=== PATIENT | female | born 1955 | race Caucasian/White ===

== ENCOUNTER → 2017-05-12 | Outpatient (CLI) | payer MEDICARE, MEDICAID ==
[~2017-05-12] MED LIST: ACET325T38 PO; ARIP5TAB13 PO; CARB15DR87 OT; CLOT15CR4 TP; DOCU-161 PO; Hydrocodone Bit/Acetaminophen PO; MELO-170 PO; MULT-974 PO; PHEN-633 PO; TEA60OIL TP; VIT1CAPS29 PO
--- NOTE | 2017-05-13 19:05 | Diagnostic Imaging Report ---
Bilateral screening mammogram 2D views with tomosynthesis The current study was also evaluated with a Computer Aided Detection (CAD) system. Indication: Screening. No current complaints stated on the questionnaire. COMPARISON: 04/16/2016. FINDINGS: The breasts are composed of heterogeneously dense parenchyma which may decrease mammographic sensitivity. Benign-appearing calcifications are seen. Allowing for technique and positional differences, no suspicious change is seen. IMPRESSION: No significant change. ACR BI-RADS Category 2: Benign findings. Result letter will be mailed to the patient. Note: At least 10% of breast cancer is not imaged by mammography. Dictated by: Dictated on workstation # [id number]
== END ==
LOC: RAD 09:25
PROVIDERS: ATTEND Family Medicine
DX: Z12.31 Encounter for screening mammogram for malignant neoplasm of breast (principal)

== ENCOUNTER 2019-03-21 12:46 | Emergency (ER) | payer MEDICARE, MEDICAID ==
[~2019-03-21] VITALS: Ht 170 cm; Wt 100.0 kg
--- NOTE | 2019-03-21 13:50 | NUR ---
Pt to room #9 via personal w/c by [facility] staff. Facility staff assisted pt to ED cart. Pt experienced x1 episode of of urinary and bowel incontinence. ED staff changed and repositioned pt.
--- NOTE | 2019-03-21 14:44 | ED General ---
General Chief Complaint: Ear Problems Stated Complaint: BACK/SIDE PAIN Nursing Triage Note: Patient brought to ER by caregiver from [facility] with complaint of right ear pain and right flank pain since Wednesday. Patient is non-verbal but does touch the right side of her head/ear when asked where pain is at today. Per caregiver the patient has also been touching her right flank area. They have been alternating tylenol and Ibuprofen with last dose of Ibuprofen given at 08:00 AM. Nursing Sepsis Screen: No Definite Risk Source of Information: Patient, Caregiver Exam Limitations: Language Barrier (Patient is mute) History of Present Illness Date Seen by Provider: Mar 21, 2019 Time Seen by Provider: 14:08 Initial Comments This 63-year-old female resident of [place] presents to the ER accompanied by a staff member with suspected pain in the right mouth or ear as well as right flank or abdominal pain. Staff reports that she has been grabbing at these areas and seems to be in pain. The caregiver present states she has not seen any recent bowel movements so constipation is a possibility. There were no known injuries. Vital signs are within normal limits. Patient has cerebral palsy and significant MR. She is nonverbal. Allergies and Home Medications Allergies Coded Allergies: carbamazepine (Unverified Allergy, Mild, 10/03/09) iodine (Unverified Allergy, Mild, 10/03/09) Home Medications Acetaminophen 325 Mg Tablet, 650 MG PO Q6H PRN for PAIN, (Reported) Aripiprazole 5 Mg Tablet, 5 MG PO HS, (Reported) Carbamide Peroxide 15 Ml Drops, 15 ML OT UD, (Reported) Cephalexin 500 Mg Capsule, 500 MG PO TID Prescribed by: KEESHA MAHONEY on 03/21/19 1701 Clotrimazole/Betamethasone Dip 15 Gm Cream..g., 15 GM TP TID, (Reported) Docusate Sodium 100 Mg Capsule, 100 MG PO DAILY PRN for CONSTIPATION, (Reported) Meloxicam 7.5 Mg Tablet, 7.5 MG PO DAILY, (Reported) Multivitamin 1 Each Tablet, 1 TAB PO DAILY, (Reported) Phenytoin Sodium 100 Mg Cap, 200 MG PO BID, (Reported) Polyethylene Glycol 3350 119 Gm Powder, 17 GM PO BID PRN for CONSTIPATION-1ST LINE Fill to cap line. Dissolve in 8-12 ounces of clear liquid. Prescribed by: KEESHA MAHONEY on 03/21/19 1701 Tea Tree Oil 60 Ml Oil, 1 DROP TP DAILY, (Reported) to TOENAILS Patient Home Medication List Home Medication List Reviewed: Yes Review of Systems Review of Systems Constitutional: no symptoms reported EENTM: see HPI Respiratory: no symptoms reported Cardiovascular: no symptoms reported Gastrointestinal: see HPI Genitourinary: no symptoms reported : No Musculoskeletal: no symptoms reported Skin: no symptoms reported Psychiatric/Neurological: See HPI Hematologic/Lymphatic: No Symptoms Reported Immunological/Allergic: no symptoms reported Past Hhwvqae-Okavuo-Hvklls Hx Past Med/Social Hx: Reviewed Nursing Past Med/Soc Hx Patient Social History Alcohol Use: Denies Use Recreational Drug Use: No Smoking Status: Never a Smoker 2nd Hand Smoke Exposure: No Recent Foreign Travel: No Contact w/Someone Who Travel: No Recent Infectious Disease Expo: No Recent Hopitalizations: No Immunizations Up To Date Tetanus Booster (TDap): Unknown Date of Influenza Vaccine: Mar 29, 2018 Seasonal Allergies Seasonal Allergies: No Past Medical History Surgeries: Yes (FX HIP AND ANKLE REPAIRS) Respiratory: No Cardiac: No Neurological: Yes Cerebral Palsy, Developmental Disorder (Mental retardation of [place] chart), Seizure Disorder Reproductive Disorders: No Gastrointestinal: Yes Chronic Constipation Musculoskeletal: Yes (01/11/15 LEFT TIB/FIB FX) Arthritis, Fractures Endocrine: No Hearing Impairment: Deaf Cancer: No Psychosocial: Yes Schizophrenia (schizoaffective disorder) Integumentary: No Blood Disorders: No Family Medical History Patient reports no known family medical history. Physical Exam Vital Signs Vital Signs - First Documented 03/21/19 03/21/19 13:14 17:43 Temp 35.5 Pulse 78 Resp 14 B/P (MAP) 124/81 (95) Pulse Ox 96 O2 Delivery Room Air Capillary Refill : Less Than 3 Seconds Height, Weight, BMI Height: 5'4.00" Weight: 200lbs. 9.6oz. 90.757965hp; 34.00 BMI Method:Estimated General Appearance: No Apparent Distress, WD/WN HEENT: PERRL/EOMI, Other (left ear canal nearly occluded by cerumen. Right ear canal completely occluded by cerumen. Oropharynx clear. She is missing most of her teeth. No inflammatory changes or evidence of abscess within the mouth. Mo uth is nontender) Neck: Normal Inspection, Other (questionable tenderness in the right cervical lymph node region) Respiratory: Lungs Clear, Normal Breath Sounds, No Accessory Muscle Use, No Respiratory Distress Cardiovascular: Regular Rate, Rhythm, No Edema, No Murmur Gastrointestinal: Normal Bowel Sounds, Soft, Tenderness (questionable in the right midabdomen) Extremity: Normal Inspection, No Pedal Edema Neurologic/Psychiatric: Alert, No Motor/Sensory Deficits, Normal Mood/Affect, Other (nonverbal) Skin: Normal Color, Warm/Dry Progress/Results/Core Measures Suspected Sepsis Recent Fever Within 48 Hours: No Infection Criteria Present: None New/Unexplained Altered Menta: No Sepsis Screen: No Definite Risk SIRS Temperature: Pulse: 78 Respiratory Rate: 14 Laboratory Tests 03/21/19 14:55: White Blood Count 7.2 Blood Pressure 124 /81 Mean: 95 Laboratory Tests 03/21/19 14:55: Creatinine 0.83, Platelet Count 166, Total Bilirubin 0.3 Results/Orders Lab Results Laboratory Tests Test 03/21/19 14:53 03/21/19 14:55 Range/Units Urine Color YELLOW Urine Clarity CLEAR Urine pH 5 5-9 Urine Specific Twisp 1.020 1.016-1.022 Urine Protein 2+ H NEGATIVE Urine Glucose (UA) NEGATIVE NEGATIVE Urine Ketones NEGATIVE NEGATIVE Urine Nitrite POSITIVE H NEGATIVE Urine Bilirubin NEGATIVE NEGATIVE Urine Urobilinogen NORMAL NORMAL MG/DL Urine Leukocyte Esterase 3+ H NEGATIVE Urine RBC (Auto) 4+ H NEGATIVE Urine RBC 0-2 /HPF Urine WBC 50-100 H /HPF Urine Crystals NONE /LPF Urine Bacteria LARGE H /HPF Urine Casts NONE /LPF Urine Mucus NEGATIVE /LPF Urine Culture Indicated YES White Blood Count 7.2 4.3-11.0 10^3/uL Red Blood Count 4.42 4.35-5.85 10^6/uL Hemoglobin 14.4 11.5-16.0 G/DL Hematocrit 43 35-52 % Mean Corpuscular Volume 98 80-99 FL Mean Corpuscular Hemoglobin 33 25-34 PG Mean Corpuscular Hemoglobin Concent 33 32-36 G/DL Red Cell Distribution Width 12.9 10.0-14.5 % Platelet Count 166 130-400 10^3/uL Mean Platelet Volume 11.0 H 7.4-10.4 FL Neutrophils (%) (Auto) 70 42-75 % Lymphocytes (%) (Auto) 22 12-44 % Monocytes (%) (Auto) 9 0-12 % Eosinophils (%) (Auto) 0 0-10 % Basophils (%) (Auto) 0 0-10 % Neutrophils # (Auto) 5.0 1.8-7.8 X 10^3 Lymphocytes # (Auto) 1.6 1.0-4.0 X 10^3 Monocytes # (Auto) 0.6 0.0-1.0 X 10^3 Eosinophils # (Auto) 0.0 0.0-0.3 10^3/uL Basophils # (Auto) 0.0 0.0-0.1 10^3/uL Sodium Level 146 H 135-145 MMOL/L Potassium Level 3.8 3.6-5.0 MMOL/L Chloride Level 110 H 98-107 MMOL/L Carbon Dioxide Level 31 21-32 MMOL/L Anion Gap 5 5-14 MMOL/L Blood Urea Nitrogen 17 7-18 MG/DL Creatinine 0.83 0.60-1.30 MG/DL Estimat Glomerular Filtration Rate > 60 BUN/Creatinine Ratio 20 Glucose Level 80 70-105 MG/DL Calcium Level 8.3 L 8.5-10.1 MG/DL Corrected Calcium 8.7 8.5-10.1 MG/DL Total Bilirubin 0.3 0.1-1.0 MG/DL Aspartate Amino Transf (AST/SGOT) 58 H 5-34 U/L Alanine Aminotransferase (ALT/SGPT) 75 H 0-55 U/L Alkaline Phosphatase 162 H 40-136 U/L C-Reactive Protein High Sensitivity 3.42 H 0.00-0.50 MG/DL Total Protein 6.8 6.4-8.2 GM/DL Albumin 3.5 3.2-4.5 GM/DL My Orders Orders - KEESHA BAIN MD Ua Culture If Indicated (03/21/19 14:09) Cbc With Automated Diff (03/21/19 14:26) Comprehensive Metabolic Panel (03/21/19 14:26) Hs C Reactive Protein (03/21/19 14:26) Chest 1 View, Ap/Pa Only (03/21/19 14:26) Abdomen/Kub 1view (03/21/19 14:26) Urine Culture (03/21/19 14:53) Ceftriaxone For Iv Use (Rocephin For I (03/21/19 16:00) Medications Given in ED Current Medications Medications Dose Ordered Sig/Marleen Route Start Time Stop Time Status Last Admin Dose Admin Ceftriaxone Sodium 1000 mg/ Sterile Water 10 ml @ 200 mls/hr ONCE ONCE IV 03/21/19 16:00 03/21/19 16:02 DC 03/21/19 16:56 200 MLS/HR Vital Signs/I&O 03/21/19 03/21/19 13:14 17:43 Temp 35.5 35.5 Pulse 78 69 Resp 14 14 B/P (MAP) 124/81 (95) 151/88 (95) Pulse Ox 96 O2 Delivery Room Air Room Air Capillary Refill : Less Than 3 Seconds Blood Pressure Mean: 95 Progress Note #1: Time: 14:45 Progress Note Patient seen and examined. Due to her cerebral palsy and hearing/speech deficits it is very difficult to obtain an accurate history and physical from her. We will obtain some basic labs as well as a chest x-ray and an abdomen film. Progress Note #2: Progress Note X-ray was suggestive of constipation. Urinary tract infection was identified. A dose of Rocephin was administered. See discharge instructions. Diagnostic Imaging Diagonstic Imaging: Xray Plain Films/CT/US/NM/MRI: abdomen, pelvis Comments NAME: LEXISSCOTT Bnods [facility] REC#: [id number] PT STATUS: DEP ER : 1955 PHYSICIAN: KEESHA BAIN MD ADMIT DATE: 03/21/19/ER Signed Date of Exam: 03/21/19 ABDOMEN/KUB 1VIEW INDICATION: Right flank pain. TIME OF EXAM: 4:07 p.m. FINDINGS: Bowel gas pattern is nonobstructed. There is moderate stool in the right colon and the proximal transverse colon. Small bowel is nondilated. No free air is seen. No pathologic calcifications are identified. There are postop changes involving bilateral hips. IMPRESSION: Moderate stool in the right colon. The study is otherwise unremarkable. Dictated by: Dictated on workstation # [id number] Dict: 03/21/19 1625 Trans: 03/21/19 0725 Interpreted by: JOSUE NORTON MD Electronically signed by: JOSUE NORTON MD 03/21/19 1823 Reviewed: Reviewed by Me Diagonstic Imaging: Xray Plain Films/CT/US/NM/MRI: chest Comments NAME: SCOTT PIRES [facility] REC#: [id number] PT STATUS: DEP ER : 1955 PHYSICIAN: KEESHA BAIN MD ADMIT DATE: 03/21/19/ER Signed Date of Exam: 03/21/19 CHEST 1 VIEW, AP/PA ONLY INDICATION: Right ear pain and right flank pain. TIME OF EXAMINATION: 4:07 PM. COMPARISON: Correlation is made with the prior chest from 01/12/2015. FINDINGS: The heart is enlarged. The lungs are clear. No infiltrate or failure is detected. No effusion or pneumothorax is seen. IMPRESSION: Cardiomegaly. No acute feature is detected. Dictated by: Dictated on workstation # [id number] Dict: 03/21/19 1624 Trans: 03/21/191822 Interpreted by: JOSUE NORTON MD Electronically signed by: JOSUE NORTON MD 03/21/19 182 Reviewed: Reviewed by Me Departure Impression Primary Impression: Urinary tract infection Qualified Codes: N39.0 - Urinary tract infection, site not specified Additional Impressions: Impacted cerumen Qualified Codes: H61.23 - Impacted cerumen, bilateral Constipation Qualified Codes: K59.00 - Constipation, unspecified Disposition: 01 HOME, SELF-CARE Condition: Improved Departure-Patient Inst. Decision time for Depature: 16:53 Referrals: AGGIE GIANG DO (PCP/Family) Primary Care Physician Patient Instructions: Constipation in Adults, Ear Wax Impaction (DC), Urinary Tract Infections in Adults Add. Discharge Instructions: Drink plenty of clear liquids. Complete your antibiotic as prescribed. You may use MiraLAX (polyethylene glycol) once or twice daily as needed for constipation. Fill the cap to the line and dissolve powder in 8-12 ounces of clear liquid. Use an jrbl-[id number]-[id number] earwax removal product such as Debrox per package ins tructions for earwax impaction. Alternatively, you can use 3 or 4 drops of baby oil in each ear once or twice per week to loosen wax and help it come out naturally. Follow-up with your primary care provider at the end of the week to review urine culture results. All discharge instructions reviewed with patient and/or family. Voiced understanding. Scripts Cephalexin (Keflex) 500 Mg Capsule 500 MG PO TID, #20 CAP Prov: KEESHA BAIN MD 03/21/19 Polyethylene Glycol 3350 (Miralax) 119 Gm Powder 17 GM PO BID PRN for CONSTIPATION-1ST LINE, #1 EA Fill to cap line. Dissolve in 8-12 ounces of clear liquid. Prov: KEESHA BAIN MD 03/21/19 Copy Copies To 1: AGGIE GIANG JOSHUA T MD Mar 21, 2019 14:44
[2019-03-21 15:04] LABS: BASOPHILS % (AUTO) 0 % (0-10); EOSINOPHILS % (AUTO) 0 % (0-10); HEMATOCRIT 43 % (35-52); HEMOGLOBIN 14.4 G/DL (11.5-16.0); LYMPHOCYTES # (AUTO) 1.6 X 10^3 (1.0-4.0); LYMPHOCYTES % (AUTO) 22 % (12-44); MEAN CORPUSCULAR HEMOGLOBIN 33 PG (25-34); MEAN CORPUSCULAR HGB CONC 33 G/DL (32-36); MEAN CORPUSCULAR VOLUME 98 FL (80-99); MONOCYTES # (AUTO) 0.6 X 10^3 (0.0-1.0); MONOCYTES % (AUTO) 9 % (0-12); NEUTROPHILS % (AUTO) 70 % (42-75); PLATELET COUNT 166 10^3/uL (130-400); RED CELL DISTRIBUTION WIDTH 12.9 % (10.0-14.5); WHITE BLOOD COUNT 7.2 10^3/uL (4.3-11.0)
[2019-03-21 15:05] LABS: BILIRUBIN,URINE NEGATIVE (NEGATIVE); CLARITY,URINE CLEAR; COLOR,URINE YELLOW; GLUCOSE, URINE (UA) NEGATIVE (NEGATIVE); KETONES,URINE NEGATIVE (NEGATIVE); LEUKOCYTE ESTERASE ,URINE 3+ (NEGATIVE); NITRITE,URINE POSITIVE (NEGATIVE); PH,URINE 5 (5-9); PROTEIN,URINE 2+ (NEGATIVE); UROBILINOGEN,URINE NORMAL (NORMAL)
[2019-03-21 15:22] LABS: ALANINE AMINOTRANSFERASE 75 U/L (0-55); ALBUMIN 3.5 GM/DL (3.2-4.5); ALKALINE PHOSPHATASE 162 U/L (40-136); BILIRUBIN,TOTAL 0.3 MG/DL (0.1-1.0); BUN/CREATININE RATIO 20; CALCIUM 8.3 MG/DL (8.5-10.1); CARBON DIOXIDE 31 MMOL/L (21-32); CHLORIDE 110 MMOL/L (98-107); CREATININE SERUM 0.83 MG/DL (0.60-1.30); GFR ESTIMATED > 60; GLUCOSE 80 MG/DL (70-105); POTASSIUM 3.8 MMOL/L (3.6-5.0); SODIUM 146 MMOL/L (135-145); TOTAL PROTEIN 6.8 GM/DL (6.4-8.2)
[2019-03-21 15:39] LABS: RBC,URINE 0-2 /HPF
[2019-03-21 15:40] LABS: BACTERIA,URINE LARGE /HPF; WBC,URINE 50-100 /HPF
[2019-03-21] MEDS ORDERED: cefTRIAXone FOR IV USE 1,000 MG in WATER (STERILE) FOR INJECTION 10 ML IV ONE (16:00)
--- NOTE | 2019-03-21 16:28 | Diagnostic Imaging Report ---
INDICATION: Right flank pain. TIME OF EXAM: 4:07 p.m. FINDINGS: Bowel gas pattern is nonobstructed. There is moderate stool in the right colon and the proximal transverse colon. Small bowel is nondilated. No free air is seen. No pathologic calcifications are identified. There are postop changes involving bilateral hips. IMPRESSION: Moderate stool in the right colon. The study is otherwise unremarkable. Dictated by: Dictated on workstation # [id number]
--- NOTE | 2019-03-21 16:28 | Diagnostic Imaging Report ---
INDICATION: Right ear pain and right flank pain. TIME OF EXAMINATION: 4:07 PM. COMPARISON: Correlation is made with the prior chest from 01/12/2015. FINDINGS: The heart is enlarged. The lungs are clear. No infiltrate or failure is detected. No effusion or pneumothorax is seen. IMPRESSION: Cardiomegaly. No acute feature is detected. Dictated by: Dictated on workstation # [id number]
[2019-03-21] MEDS ORDERED: POLY119P5 PO (17:01)
[2019-03-21] MEDS ORDERED: CEPH-507 PO (17:01)
[2019-03-21 17:43] VITALS: BP 151/88
== END 2019-03-21 17:44 | disposition home or self-care (01) ==
LOC: ER 12:46 → EDUNIT# 12:46 → ER 17:44
DX: N39.0 Urinary tract infection, site not specified (principal); H61.23 Impacted cerumen, bilateral; K59.00 Constipation, unspecified; G40.909 Epilepsy, unspecified, not intractable, without status epilepticus; G80.9 Cerebral palsy, unspecified; F79 Unspecified intellectual disabilities; F25.9 Schizoaffective disorder, unspecified; Z88.8 Allergy status to other drugs, medicaments and biological substances
CPT/HCPCS: 36415; 51701; 71045; 74018; 80053; 81000; 85025; 86141; 87077; 87088; 87186

== ENCOUNTER 2020-11-22 22:01 | Emergency (ER) | payer MEDICARE, MEDICAID ==
[~2020-11-22] VITALS: Ht 170 cm; Wt 100.0 kg
[~2020-11-22 22:01] MED LIST changes: +CEPH-507 PO; +POLY119P5 PO
[2020-11-22 23:18] LABS: BASOPHILS % (AUTO) 0 % (0-10); EOSINOPHILS % (AUTO) 0 % (0-10); HEMATOCRIT 40 % (35-52); HEMOGLOBIN 12.9 g/dL (11.5-16.0); LYMPHOCYTES # (AUTO) 1.4 10^3/uL (1.0-4.0); LYMPHOCYTES % (AUTO) 15 % (12-44); MEAN CORPUSCULAR HEMOGLOBIN 32 pg (25-34); MEAN CORPUSCULAR HGB CONC 32 g/dL (32-36); MEAN CORPUSCULAR VOLUME 99 fL (80-99); MEAN PLATELET VOLUME 11.1 fL (9.0-12.2); MONOCYTES % (AUTO) 11 % (0-12); NEUTROPHILS # (AUTO) 6.7 10^3/uL (1.8-7.8); NEUTROPHILS % (AUTO) 74 % (42-75); PLATELET COUNT 180 10^3/uL (130-400); WHITE BLOOD COUNT 9.1 10^3/uL (4.3-11.0)
[2020-11-22 23:40] LABS: ALANINE AMINOTRANSFERASE 101 U/L (0-55); ALKALINE PHOSPHATASE 208 U/L (40-136); AMYLASE 74 U/L (25-125); BILIRUBIN,TOTAL 0.5 MG/DL (0.1-1.0); BUN/CREATININE RATIO 20; CALCIUM 8.2 MG/DL (8.5-10.1); CARBON DIOXIDE 29 MMOL/L (21-32); CHLORIDE 106 MMOL/L (98-107); CREATININE SERUM 0.76 MG/DL (0.60-1.30); GFR ESTIMATED > 60; LIPASE 30 U/L (8-78); POTASSIUM 3.7 MMOL/L (3.6-5.0); SODIUM 142 MMOL/L (135-145)
[2020-11-23] MEDS ORDERED: RX-DOXYCYCLINE 100 MG (VIBRAMYCIN) TAB PPK#2 PO STA (00:04)
[2020-11-23] MEDS ORDERED: DOXY100T2 PO (00:09)
[2020-11-23] MEDS ORDERED: PANT40TA2 PO (00:09)
[2020-11-23] MEDS ORDERED: RX-ONDANSETRON 4 MG ODT (ZOFRAN) PPK #4 PO STA (00:09)
[2020-11-23] MEDS ORDERED: BENZ100C18 PO (00:09)
[2020-11-23] MEDS ORDERED: ONDA4TAB11 PO (00:09)
--- NOTE | 2020-11-23 00:09 | ED General ---
General Chief Complaint: Oral/Throat Problems Stated Complaint: CHOKED ON FOOD DROOLING/COUGH Nursing Triage Note: CHOKED LAST NIGHT PER STAFF, INCREASED DROOLING. VOMITTED X1 TONIGHT Nursing Sepsis Screen: No Definite Risk Source of Information: Caregiver Exam Limitations: Other (PT IS DEAF AND MUTE) History of Present Illness Date Seen by Provider: Nov 22, 2020 Time Seen by Provider: 22:11 Initial Comments PT ARRIVES VIA POV WITH MANAGEMENT SCIENTIST FROM [place], IN WHEELCHAIR MANAGEMENT SCIENTIST REPORTS THAT IT WAS REPORTED TO HIM THAT PT GOT CHOKED ON FOOD LAST NIGHT, THEN RECOVERED MANAGEMENT SCIENTIST STATES IT HAS BEEN REPORTED TO HIM THAT PT HAS BEEN ABLE TO EAT AND DRINK NORMALLY ALL DAY TODAY WITH OUT PROBLEMS WAS REPORTED TO MANAGEMENT SCIENTIST WILD, THAT AROUND 1700 TONIGHT SHE "WAS ACTING WEIRD" AND WAS NOTED TO BE COUGHING AND DROOLING MANAGEMENT SCIENTIST REPORTS THAT PT DID COUGH AND THEN VOMIT ON THE WAY HERE TONIGHT PT HAS NOT HAD ANY PROBLEMS SWALLOWING TONIGHT NO PROBLEMS BREATHING NO REPORTED FEVER PT HAS RECEIVED BOTH COVID-19 VACCINES IN AUGUST OF THIS YEAR NO ONE IS ILL AT THE FACILITY. PCP: DR. GIANG Allergies and Home Medications Allergies Coded Allergies: carbamazepine (Unverified Allergy, Mild, 10/03/09) iodine (Unverified Allergy, Mild, 10/03/09) Home Medications Acetaminophen 325 Mg Tablet, 650 MG PO Q6H PRN for PAIN, (Reported) Aripiprazole 5 Mg Tablet, 5 MG PO HS, (Reported) Benzonatate 100 Mg Capsule, 100 MG PO TID Prescribed by: RICHA CINTRON on 11/23/208 Carbamide Peroxide 15 Ml Drops, 15 ML OT UD, (Reported) Cephalexin 500 Mg Capsule, 500 MG PO TID Prescribed by: KEESHA MAHONEY on 03/21/19 1701 Clotrimazole/Betamethasone Dip 15 Gm Cream..g., 15 GM TP TID, (Reported) Docusate Sodium 100 Mg Capsule, 100 MG PO DAILY PRN for CONSTIPATION, (Reported) Doxycycline Hyclate 100 Mg Tablet, 100 MG PO BID Prescribed by: RICHA CINTRON on 11/23/208 Meloxicam 7.5 Mg Tablet, 7.5 MG PO DAILY, (Reported) Multivitamin 1 Each Tablet, 1 TAB PO DAILY, (Reported) Ondansetron 4 Mg Tab.rapdis, 4 MG PO Q4H Prescribed by: RICHA CINTRON on 11/23/20 000 Pantoprazole Sodium 40 Mg Tablet.dr, 40 MG PO DAILY Prescribed by: RICHA CINTRON on 11/23/208 Phenytoin Sodium 100 Mg Cap, 200 MG PO BID, (Reported) Polyethylene Glycol 3350 119 Gm Powder, 17 GM PO BID PRN for CONSTIPATION-1ST LINE Fill to cap line. Dissolve in 8-12 ounces of clear liquid. Prescribed by: KEESHA MAHONEY on 03/21/19 170 Tea Tree Oil 60 Ml Oil, 1 DROP TP DAILY, (Reported) to TOENAILS Patient Home Medication List Home Medication List Reviewed: Yes Review of Systems Review of Systems Constitutional: No fever Respiratory: cough; No short of breath Gastrointestinal: see HPI, vomiting Past Etbzahi-Vlgarf-Vndpty Hx Past Med/Social Hx: Reviewed and Corrections made Patient Social History Alcohol Use: Denies Use Smoking Status: Never a Smoker 2nd Hand Smoke Exposure: No Recent Infectious Disease Expo: No Recent Hopitalizations: No Immunizations Up To Date Tetanus Booster (TDap): Unknown Date of Influenza Vaccine: Mar 29, 2018 Seasonal Allergies Seasonal Allergies: No Past Medical History Surgeries: Yes (FX HIP AND ANKLE REPAIRS) Orthopedic Respiratory: No Cardiac: No Neurological: Yes (SEVERE MR) Cerebral Palsy, Developmental Disorder, Seizure Disorder : No Reproductive Disorders: No Gastrointestinal: Yes Chronic Constipation Musculoskeletal: Yes (01/11/15 LEFT TIB/FIB FX--STILL WEARS A TALL "WALKING BOOT" ON LEFT LEG) Arthritis, Fractures Endocrine: No HEENT: Yes (DEAF AND MUTE) Hearing Impairment: Deaf Cancer: No Psychosocial: Yes (SEVERE M.R. ) Schizophrenia Integumentary: No Blood Disorders: No Family Medical History Patient reports no known family medical history. Physical Exam Vital Signs Vital Signs - First Documented 11/22/20 22:15 Temp 37.3 Pulse 77 Resp 16 B/P (MAP) 126/63 (84) Pulse Ox 95 O2 Delivery Room Air Capillary Refill : Less Than 3 Seconds Height, Weight, BMI Height: 5'4.00" Weight: 200lbs. 9.6oz. 90.657478zt; 34.00 BMI Method:Estimated General Appearance: No Apparent Distress, WD/WN, Other (NO DROOLING, DOES NOT APPEAR ILL OR TO BE IN ANY DISCOMFORT OR DISTRESS. PT SITTING IN WHEELCHAIR WITH LEFT LEG IN A TALL 'WALKING BOOT" AND LOWER LEG IS INTERNALLY ROTATED 90 DEGREES--REPORTEDLY IS NORMAL POSITIONING FOR PT. ) HEENT: Other (POOR DENTITION, NO DROOLING OR GAGGING, SPONTANEOUSLY OPENS HER M OUTH ON HER OWN WHEN I EXAMINE HER MOUTH) Neck: Full Range of Motion Respiratory: Normal Breath Sounds, No Accessory Muscle Use, No Respiratory Distress; No Rales, No Rhonci, No Wheezing; Other (OCCASIONALY DRY COUGH) Cardiovascular: Regular Rate, Rhythm Gastrointestinal: Soft Extremity: Other (LEFT LEG IN BOOT NOTED ABOVE) Neurologic/Psychiatric: Alert (LOOKING AROUND, GOOD EYE CONTACT), Other (DEAF AND MUTE) Skin: Normal Color, Warm/Dry Progress/Results/Core Measures Suspected Sepsis Recent Fever Within 48 Hours: No Infection Criteria Present: None New/Unexplained Altered Menta: No Sepsis Screen: No Definite Risk SIRS Temperature: Pulse: 77 Respiratory Rate: 16 Laboratory Tests 11/22/20 23:10: White Blood Count 9.1 Blood Pressure 126 /63 Mean: 84 Laboratory Tests 11/22/20 23:10: Creatinine 0.76, Platelet Count 180, Total Bilirubin 0.5 Results/Orders Lab Results Laboratory Tests Test 11/22/20 23:10 11/23/20 00:17 Range/Units White Blood Count 9.1 4.3-11.0 10^3/uL Red Blood Count 4.04 3.80-5.11 10^6/uL Hemoglobin 12.9 11.5-16.0 g/dL Hematocrit 40 35-52 % Mean Corpuscular Volume 99 80-99 fL Mean Corpuscular Hemoglobin 32 25-34 pg Mean Corpuscular Hemoglobin Concent 32 32-36 g/dL Red Cell Distribution Width 13.0 10.0-14.5 % Platelet Count 180 130-400 10^3/uL Mean Platelet Volume 11.1 9.0-12.2 fL Immature Granulocyte % (Auto) 0 % Neutrophils (%) (Auto) 74 42-75 % Lymphocytes (%) (Auto) 15 12-44 % Monocytes (%) (Auto) 11 0-12 % Eosinophils (%) (Auto) 0 0-10 % Basophils (%) (Auto) 0 0-10 % Neutrophils # (Auto) 6.7 1.8-7.8 10^3/uL Lymphocytes # (Auto) 1.4 1.0-4.0 10^3/uL Monocytes # (Auto) 1.0 0.0-1.0 10^3/uL Eosinophils # (Auto) 0.0 0.0-0.3 10^3/uL Basophils # (Auto) 0.0 0.0-0.1 10^3/uL Immature Granulocyte # (Auto) 0.0 0.0-0.1 10^3/uL Sodium Level 142 135-145 MMOL/L Potassium Level 3.7 3.6-5.0 MMOL/L Chloride Level 106 98-107 MMOL/L Carbon Dioxide Level 29 21-32 MMOL/L Anion Gap 7 5-14 MMOL/L Blood Urea Nitrogen 15 7-18 MG/DL Creatinine 0.76 0.60-1.30 MG/DL Estimat Glomerular Filtration Rate > 60 BUN/Creatinine Ratio 20 Glucose Level 49 *L 70-105 MG/DL Calcium Level 8.2 L 8.5-10.1 MG/DL Corrected Calcium 9.0 8.5-10.1 MG/DL Total Bilirubin 0.5 0.1-1.0 MG/DL Aspartate Amino Transf (AST/SGOT) 53 H 5-34 U/L Alanine Aminotransferase (ALT/SGPT) 101 H 0-55 U/L Alkaline Phosphatase 208 H 40-136 U/L Total Protein 7.0 6.4-8.2 GM/DL Albumin 3.0 L 3.2-4.5 GM/DL Amylase Level 74 25-125 U/L Lipase 30 8-78 U/L Glucometer 60 *L 70-110 MG/DL My Orders Orders - RICHA CINTRON DO Ed Iv/Invasive Line Start (11/22/20 22:28) Monitor-Rhythm Ecg Trace Only (11/22/20 22:28) Cbc With Automated Diff (11/22/20 22:28) Comprehensive Metabolic Panel (11/22/20 22:28) Dilantin (Phenytoin) (11/22/20 22:28) Chest 1 View, Ap/Pa Only (11/22/20 22:28) Amylase (11/22/20 22:29) Lipase (11/22/20 22:29) Rx-Doxycycline Tablet (Rx-Vibramycin Tab (11/23/20 00:04) Benzonatate Capsule (Tessalon Perles) (11/23/20 00:15) Pantoprazole Tablet (Protonix Tablet) (11/23/20 00:15) Rx-Ondansetron Po (Rx-Zofran Po) (11/23/20 00:09) Glucagon Emergency Kit (Glucagon Emergen (11/23/20 00:13) Accucheck Stat ONCE (11/23/20 00:28) Medications Given in ED Current Medications Medications Dose Ordered Sig/Marleen Route Start Time Stop Time Status Last Admin Dose Admin Glucagon 1 mg STK-MED ONCE .ROUTE 11/23/20 00:13 11/23/20 00:18 DC 11/23/20 00:20 1 MG Pantoprazole Sodium 40 mg ONCE ONCE PO 11/23/20 00:15 11/23/20 00:16 DC 11/23/20 00:20 40 MG Vital Signs/I&O 11/22/20 11/23/20 22:15 00:24 Temp 37.3 36.9 Pulse 77 74 Resp 16 16 B/P (MAP) 126/63 (84) 122/61 (84) Pulse Ox 95 97 O2 Delivery Room Air Room Air Capillary Refill : Less Than 3 Seconds Blood Pressure Mean: 84 Progress Note : Progress Note NO DROOLING NO HYPOXIA NO GAGGING NO VOMITING NO DYSPNEA VITALS STABLE UNEVENTFUL ER STAY Diagnostic Imaging Comments CXR--NO ACUTE PROCESS, PENDING RADIOLOGIST REVIEW Reviewed: Reviewed by Me Departure Impression Primary Impression: POSSIBLE ASPIRATION Disposition: HOME, SELF-CARE Condition: Stable Departure-Patient Inst. Referrals: AGGIE GIANG DO (PCP/Family) Primary Care Physician Patient Instructions: Aspiration Pneumonia (DC) Add. Discharge Instructions: CONTINUE MEDICATIONS PRESCRIBED TYLENOL NEEDED FOR PAIN OR FEVER FOLLOW UP WITH DR. GIANG ON WEDNESDAY FOR FURTHER CARE, RETURN TO ER IF WORSE All discharge instructions reviewed with patient and/or family. Voiced understanding. Scripts Ondansetron (Ondansetron Odt) 4 Mg Tab.rapdis 4 MG PO Q4H for Nausea/Vomiting, #10 TAB Prov: RICHA CINTRON DO 11/23/20 Pantoprazole Sodium (Protonix) 40 Mg Tablet.dr 40 MG PO DAILY, #15 TAB Prov: RICHA CINTRON DO 11/23/20 Benzonatate (TESSALON PERLES) 100 Mg Capsule 100 MG PO TID, #30 CAP Prov: RICHA CINTRON DO 11/23/20 Doxycycline Hyclate (Doxycycline Hyclate) 100 Mg Tablet 100 MG PO BID, #20 TAB 0 Refills Prov: RICHA CINTRON DO 11/23/20 RICHA CINTRON DO Nov 23, 2020 00:09
[2020-11-23 00:11] LABS: GLUCOSE 49 MG/DL (70-105)
[2020-11-23] MEDS ORDERED: GLUCAGON EMERGENCY 1 MG/KIT ONE (00:13)
[2020-11-23] MEDS ORDERED: PANTOPRAZOLE 40 MG (PROTONIX) TAB PO ONE (00:15)
[2020-11-23] MEDS ORDERED: BENZONATATE 100 MG (TESSALON) CAPSULE PO SCH (00:15)
[2020-11-23 00:24] VITALS: BP 122/61
--- NOTE | 2020-11-23 07:53 | Diagnostic Imaging Report ---
Indication: Aspiration. Time of exam: 10:47 PM Comparison is made with prior chest from 03/21/2019. The heart size is normal. The pulmonary vascularity is unremarkable. The lungs are clear. No infiltrate, effusion or pneumothorax is detected. Impression: No acute cardiopulmonary process is detected. Dictated by: Dictated on workstation # [id number]
[2020-11-26] MEDS ORDERED: ONDA8TAB13 PO (13:00)
[2020-11-26] MEDS ORDERED: PROM25TA14 PO (13:00)
== END 2020-11-23 00:28 | disposition home or self-care (01) ==
LOC: EDUNIT# 22:01 → ER 22:04
DX: T17.928A Food in respiratory tract, part unspecified causing other injury, initial encounter (principal); F20.9 Schizophrenia, unspecified; G40.909 Epilepsy, unspecified, not intractable, without status epilepticus; Z79.899 Other long term (current) drug therapy
CPT/HCPCS: 36415; 71045; 80053; 80185; 82150; 82947; 83690; 85025; 93041

== ENCOUNTER 2020-11-25 14:11 | Emergency (ER) | payer MEDICARE, MEDICAID ==
[~2020-11-25] VITALS: Ht 167 cm; Wt 100.0 kg
[~2020-11-25 14:11] MED LIST changes: +BENZ100C18 PO; +DOXY100T2 PO; +ONDA4TAB11 PO; +PANT40TA2 PO
--- NOTE | 2020-11-25 14:19 | ED Cough/URI ---
General Chief Complaint: Respiratory Problems Stated Complaint: VOMMITTING Source: patient Exam Limitations: no limitations History of Present Illness Date Seen by Provider: Nov 25, 2020 Time Seen by Provider: 14:19 Initial Comments To ER by EMS from [place] where she resides with reports of "drooling, vomiting food from yesterday, high blood pressure". Upon arrival to ER she is not drooling and her blood pressure is 129/78. She was here recently for aspira tion. She had labs drawn which showed supratherapeutic Dilantin level which was just reported today. Timing/Duration: constant Severity/Quality: moderate Associated Symptoms: cough Allergies and Home Medications Allergies Coded Allergies: carbamazepine (Unverified Allergy, Mild, 10/03/09) iodine (Unverified Allergy, Mild, 10/03/09) Home Medications Acetaminophen 325 Mg Tablet, 650 MG PO Q6H PRN for PAIN, (Reported) Aripiprazole 5 Mg Tablet, 5 MG PO HS, (Reported) Benzonatate 100 Mg Capsule, 100 MG PO TID Prescribed by: RICHA CINTRON on 11/23/208 Carbamide Peroxide 15 Ml Drops, 15 ML OT UD, (Reported) Cephalexin 500 Mg Capsule, 500 MG PO TID Prescribed by: KEESHA MAHONEY on 03/21/191700 Clotrimazole/Betamethasone Dip 15 Gm Cream..g., 15 GM TP TID, (Reported) Docusate Sodium 100 Mg Capsule, 100 MG PO DAILY PRN for CONSTIPATION, (Reported) Doxycycline Hyclate 100 Mg Tablet, 100 MG PO BID Prescribed by: RICHA CINTRON on 11/23/208 Meloxicam 7.5 Mg Tablet, 7.5 MG PO DAILY, (Reported) Multivitamin 1 Each Tablet, 1 TAB PO DAILY, (Reported) Ondansetron 4 Mg Tab.rapdis, 4 MG PO Q4H Prescribed by: RICHA CINTRON on 11/23/208 Ondansetron 8 Mg Tab.rapdis, 8 MG PO Q6H PRN for NAUSEA/VOMITING Prescribed by: JUAN MANUEL MICHELLE on 11/25/201618 Pantoprazole Sodium 40 Mg Tablet.dr, 40 MG PO DAILY Prescribed by: RICHA CINTRON on 11/23/208 Phenytoin Sodium 100 Mg Cap, 200 MG PO BID, (Reported) Polyethylene Glycol 3350 119 Gm Powder, 17 GM PO BID PRN for CONSTIPATION-1ST LINE Fill to cap line. Dissolve in 8-12 ounces of clear liquid. Prescribed by: KEESHA MAHONEY on 03/21/19 1701 Promethazine HCl 12.5 Mg Supp.rect, 12.5 MG RC BID PRN for NAUSEA/VOMITING Prescribed by: JUAN MANUEL MICHELLE on 11/25/20 1622 Tea Tree Oil 60 Ml Oil, 1 DROP TP DAILY, (Reported) to TOENAILS Patient Home Medication List Home Medication List Reviewed: Yes Review of Systems Review of Systems Constitutional: see HPI; No chills, No fever EENTM: see HPI Respiratory: no symptoms reported Cardiovascular: no symptoms reported Gastrointestinal: nausea, vomiting Genitourinary: no symptoms reported Musculoskeletal: no symptoms reported Skin: no symptoms reported Psychiatric/Neurological: No Symptoms Reported Hematologic/Lymphatic: No Symptoms Reported Past Ezbsczw-Fkuumn-Hgurhb Hx Patient Social History 2nd Hand Smoke Exposure: No Recent Hopitalizations: No Immunizations Up To Date Tetanus Booster (TDap): Unknown Date of Influenza Vaccine: Mar 29, 2018 Seasonal Allergies Seasonal Allergies: No Past Medical History Surgeries: Yes (FX HIP AND ANKLE REPAIRS) Orthopedic Respiratory: No Cardiac: No Neurological: Yes (SEVERE MR) Cerebral Palsy, Developmental Disorder, Seizure Disorder Reproductive Disorders: No Gastrointestinal: Yes Chronic Constipation Musculoskeletal: Yes (01/11/15 LEFT TIB/FIB FX--STILL WEARS A TALL "WALKING BOOT" ON LEFT LEG) Arthritis, Fractures Endocrine: No HEENT: Yes (DEAF AND MUTE) Hearing Impairment: Deaf Cancer: No Psychosocial: Yes (SEVERE M.R. ) Schizophrenia Integumentary: No Blood Disorders: No Family Medical History Patient reports no known family medical history. Physical Exam Vital Signs - First Documented 11/25/20 14:16 Temp 36.4 Pulse 66 Resp 20 B/P (MAP) 129/80 (96) Pulse Ox 95 O2 Delivery Room Air Capillary Refill : Height: 5'4.00" Weight: 200lbs. 9.6oz. 90.935288kl; 34.00 BMI Method:Estimated General Appearance: WD/WN, no apparent distress, other (, Looking around the ro om. She is deaf and communicates via writing I am told. When I write down the question "does your stomach hurt" she replies by shaking her head yes. When I then asked the next question "did your stomach quit hurting" she still replies by shaking her head yes. She is in no apparent distress. There is no grimacing or guarding of the abdomen upon palpation.) Eyes: Bilateral Eye Normal Inspection, Bilateral Eye PERRL, Bilateral Eye EOMI HEENT: PERRL/EOMI, normal ENT inspection Neck: non-tender, full range of motion Respiratory: chest non-tender, lungs clear Cardiovascular: regular rate, rhythm, no murmur Gastrointestinal: normal bowel sounds, non tender, soft Extremities: non-tender, normal inspection, other (Left lower extremity in an orthosis) Neurologic/Psychiatric: alert, normal mood/affect Skin: normal color, warm/dry Progress/Results/Core Measures Suspected Sepsis SIRS Temperature: Pulse: Respiratory Rate: Laboratory Tests 11/25/20 14:20: White Blood Count 6.6 Blood Pressure / Mean: Laboratory Tests 11/25/20 14:20: Creatinine 0.81, Platelet Count 187, Total Bilirubin 1.0 Results/Orders Lab Results Laboratory Tests Test 11/25/20 14:20 11/25/20 15:45 Range/Units White Blood Count 6.6 4.3-11.0 10^3/uL Red Blood Count 4.33 3.80-5.11 10^6/uL Hemoglobin 13.7 11.5-16.0 g/dL Hematocrit 42 35-52 % Mean Corpuscular Volume 97 80-99 fL Mean Corpuscular Hemoglobin 32 25-34 pg Mean Corpuscular Hemoglobin Concent 33 32-36 g/dL Red Cell Distribution Width 12.9 10.0-14.5 % Platelet Count 187 130-400 10^3/uL Mean Platelet Volume 11.2 9.0-12.2 fL Immature Granulocyte % (Auto) 0 % Neutrophils (%) (Auto) 76 H 42-75 % Lymphocytes (%) (Auto) 15 12-44 % Monocytes (%) (Auto) 9 0-12 % Eosinophils (%) (Auto) 0 0-10 % Basophils (%) (Auto) 0 0-10 % Neutrophils # (Auto) 5.0 1.8-7.8 10^3/uL Lymphocytes # (Auto) 1.0 1.0-4.0 10^3/uL Monocytes # (Auto) 0.6 0.0-1.0 10^3/uL Eosinophils # (Auto) 0.0 0.0-0.3 10^3/uL Basophils # (Auto) 0.0 0.0-0.1 10^3/uL Immature Granulocyte # (Auto) 0.0 0.0-0.1 10^3/uL Sodium Level 142 135-145 MMOL/L Potassium Level 3.9 3.6-5.0 MMOL/L Chloride Level 103 98-107 MMOL/L Carbon Dioxide Level 29 21-32 MMOL/L Anion Gap 10 5-14 MMOL/L Blood Urea Nitrogen 14 7-18 MG/DL Creatinine 0.81 0.60-1.30 MG/DL Estimat Glomerular Filtration Rate > 60 BUN/Creatinine Ratio 17 Glucose Level 162 H 70-105 MG/DL Calcium Level 8.4 L 8.5-10.1 MG/DL Corrected Calcium 9.0 8.5-10.1 MG/DL Total Bilirubin 1.0 0.1-1.0 MG/DL Aspartate Amino Transf (AST/SGOT) 65 H 5-34 U/L Alanine Aminotransferase (ALT/SGPT) 117 H 0-55 U/L Alkaline Phosphatase 216 H 40-136 U/L Total Protein 7.5 6.4-8.2 GM/DL Albumin 3.2 3.2-4.5 GM/DL Lipase 24 8-78 U/L Procalcitonin 0.07 <0.10 NG/ML Urine Color YELLOW Urine Clarity CLEAR Urine pH 6.0 5-[address] 1.025 H 1.016-1.022 Urine Protein NEGATIVE NEGATIVE Urine Glucose (UA) NEGATIVE NEGATIVE Urine Ketones NEGATIVE NEGATIVE Urine Nitrite NEGATIVE NEGATIVE Urine Bilirubin NEGATIVE NEGATIVE Urine Urobilinogen 0.2 < = 1.0 MG/DL Urine Leukocyte Esterase TRACE H NEGATIVE Urine RBC (Auto) TRACE-I NEGATIVE Urine RBC 0-2 /HPF Urine WBC 5-10 H /HPF Urine Squamous Epithelial Cells 0-2 /HPF Urine Crystals NONE /LPF Urine Bacteria LARGE H /HPF Urine Casts NONE /LPF Urine Mucus NEGATIVE /LPF Urine Culture Indicated YES My Orders Orders - JUAN MANUEL MICHELLE APRN Ed Iv/Invasive Line Start (11/25/20 14:18) Cbc With Automated Diff (11/25/20 14:18) Comprehensive Metabolic Panel (11/25/20 14:18) Procalcitonin (Pct) (11/25/20 14:18) Chest 1 View, Ap/Pa Only (11/25/20 14:18) Ct Abdomen/Pelvis Wo (11/25/20 14:18) Lipase (11/25/20 14:18) Ns Iv 1000 Ml (Sodium Chloride 0.9%) (11/25/20 14:30) Ondansetron Injection (Zofran Injectio (11/25/20 14:30) Ua Culture If Indicated (11/25/20 14:25) Mupirocin Ointment (Bactroban Ointment (11/25/20 14:54) Urine Culture (11/25/20 15:45) Medications Given in ED Current Medications Medications Dose Ordered Sig/Marleen Route Start Time Stop Time Status Last Admin Dose Admin Ondansetron HCl 8 mg ONCE ONCE IVP 11/25/20 14:30 11/25/20 14:31 DC 11/25/20 14:30 8 MG Vital Signs/I&O 11/25/20 14:16 Temp 36.4 Pulse 66 Resp 20 B/P (MAP) 129/80 (96) Pulse Ox 95 O2 Delivery Room Air Capillary Refill : Diagnostic Imaging Diagonstic Imaging: CT Comments NAME: LEXISSCOTT Bonds [facility] REC#: [id number] PT STATUS: REG ER : 1955 PHYSICIAN: JUAN MANUEL MICHELLE APRN ADMIT DATE: 11/25/20/ER Draft Date of Exam:11/25/20 CT ABDOMEN/PELVIS WO PROCEDURE: CT abdomen and pelvis without contrast. TECHNIQUE: Multiple contiguous axial images were obtained through the abdomen and pelvis without the use of intravenous contrast. Auto Exposure Controls were utilized during the CT exam to meet ALARA standards for radiation dose reduction. INDICATION: Abdominal pain with hypertension. FINDINGS: There has been development of an approximately 7 cm in diameter low-density focus within the posterior right hepatic lobe. Note is also made of gallbladder distention with redemonstration of cholecystolithiasis. Small punctate area of high density is seen near the ampulla of Vater which could represent choledocholithiasis. There is increase in iyuq-hu-kpspcgru hiatal hernia. No discrete pancreatic, adrenal gland, or splenic lesion is identified. Unenhanced kidneys are unremarkable in appearance. There is artifact from metallic hip prostheses which limits evaluation of the pelvis. No definite pelvic mass or free fluid is identified. Unopacified bladder reveals no focal abnormality. No definite pathologic adenopathy is detected. No appendiceal inflammation is seen. IMPRESSION: 1. Development of 7 cm right lobe hepatic mass. There does appear to be background hepatic cirrhosis and the possibility of developing hepatocellular carcinoma is not excluded. Other consideration would include metastatic disease to the liver. Clinical correlation is recommended. Consideration could be given to PET imaging or biopsy. 2. There is cholecystolithiasis and probable choledocholithiasis with punctate calcification at the level of the ampulla of Vater. Correlation with laboratory values and possible nuclear medicine hepatobiliary scan would be of use. Dictated on workstation # [id number] Dict: 11/25/20 1457 Trans: 11/25/20 1509 AS6 [id number] Interpreted by: PATT MARS MD Electronically signed by: Departure Communication (Admissions) [id number] discussed with Dr. Segal the CT findings. He reviewed it himself and feels that if it is a stop it is very small and will likely pass without intervention. She has a normal total bilirubin and she is nontender to palpation of the upper abdomen including the right upper abdomen. I gave her some Zofran and her nausea and vomiting is controlled. I spoke with Dr. Giang about the CT findings of a liver mass. He will see her tomorrow morning at 9 AM and arrange for further evaluation of this mass with either a CT or biopsy. NAME: LEXISCSOTT Bonds [facility] REC#: [id number] PT STATUS: REG ER : 1955 PHYSICIAN: JUAN MANUEL MICHELLE APRN ADMIT DATE: 11/25/20/ER Draft Date of Exam:11/25/20 CT ABDOMEN/PELVIS WO PROCEDURE: CT abdomen and pelvis without contrast. TECHNIQUE: Multiple contiguous axial images were obtained through the abdomen and pelvis without the use of intravenous contrast. Auto Exposure Controls were utilized during the CT exam to meet ALARA standards for radiation dose reduction. INDICATION: Abdominal pain with hypertension. FINDINGS: There has been development of an approximately 7 cm in diameter low-density focus within the posterior right hepatic lobe. Note is also made of gallbladder distention with redemonstration of cholecystolithiasis. Small punctate area of high density is seen near the ampulla of Vater which could represent choledocholithiasis. There is increase in ctbx-jw-qgulhlmi hiatal hernia. No discrete pancreatic, adrenal gland, or splenic lesion is identified. Unenhanced kidneys are unremarkable in appearance. There is artifact from metallic hip prostheses which limits evaluation of the pelvis. No definite pelvic mass or free fluid is identified. Unopacified bladder reveals no focal abnormality. No definite pathologic adenopathy is detected. No appendiceal inflammation is seen. IMPRESSION: 1. Development of 7 cm right lobe hepatic mass. There does appear to be background hepatic cirrhosis and the possibility of developing hepatocellular carcinoma is not excluded. Other consideration would include metastatic disease to the liver. Clinical correlation is recommended. Consideration could be given to PET imaging or biopsy. 2. There is cholecystolithiasis and probable choledocholithiasis with punctate calcification at the level of the ampulla of Vater. Correlation with laboratory values and possible nuclear medicine hepatobiliary scan would be of use. Dictated on workstation # [id number] Dict: 11/25/20 1457 Trans: 11/25/20 1509 AS6 [id number] Interpreted by: PATT MARS MD Electronically signed by: Impression Primary Impression: Liver mass, right lobe Additional Impression: Cholelithiasis Disposition: 01 HOME, SELF-CARE Condition: Stable Departure-Patient Inst. Decision time for Depature: 16:18 Referrals: AGGIE GIANG DO (PCP/Family) Primary Care Physician Patient Instructions: Liver Cancer, Gallstones (DC) Add. Discharge Instructions: 1. Use the nausea medication as needed. Return to ER for fevers or uncontrollable vomiting or any other concerns. See Dr. Giang tomorrow at 9 AM and he will help arrange further evaluation of this mass of the liver which may include biopsy or PET CT All discharge instructions reviewed with patient and/or family. Voiced understanding. Scripts Promethazine HCl (Promethazine Suppository) 12.5 Mg Supp.rect 12.5 MG RC BID PRN for NAUSEA/VOMITING, #14 SUPP.RECT . Prov: JUAN MANUEL MICHELLE SHAREPOINT ADMINISTRATOR 11/25/20 Ondansetron (Ondansetron Odt) 8 Mg Tab.rapdis 8 MG PO Q6H PRN for NAUSEA/VOMITING, #14 TAB . Prov: JUAN MANUEL MICHELLE APRN 11/25/20 Copy Copies To 1: AGGIE GIANG PETER J APRN Nov 25, 2020 14:19
[2020-11-25] MEDS ORDERED: NS IV 1000 ML 1,000 ML IV SCH (14:30)
[2020-11-25] MEDS ORDERED: ONDANSETRON 4 MG/2 ML (SDV) Z0FRAN IVP ONE (14:30)
[2020-11-25 14:33] LABS: BASOPHILS % (AUTO) 0 % (0-10); EOSINOPHILS % (AUTO) 0 % (0-10); HEMATOCRIT 42 % (35-52); HEMOGLOBIN 13.7 g/dL (11.5-16.0); LYMPHOCYTES % (AUTO) 15 % (12-44); MEAN CORPUSCULAR HEMOGLOBIN 32 pg (25-34); MEAN CORPUSCULAR HGB CONC 33 g/dL (32-36); MEAN CORPUSCULAR VOLUME 97 fL (80-99); MEAN PLATELET VOLUME 11.2 fL (9.0-12.2); MONOCYTES # (AUTO) 0.6 10^3/uL (0.0-1.0); MONOCYTES % (AUTO) 9 % (0-12); NEUTROPHILS % (AUTO) 76 % (42-75); PLATELET COUNT 187 10^3/uL (130-400); WHITE BLOOD COUNT 6.6 10^3/uL (4.3-11.0)
[2020-11-25 14:39] LABS: ALBUMIN 3.2 GM/DL (3.2-4.5); CHLORIDE 103 MMOL/L (98-107); POTASSIUM 3.9 MMOL/L (3.6-5.0); SODIUM 142 MMOL/L (135-145)
[2020-11-25 14:40] LABS: CALCIUM 8.4 MG/DL (8.5-10.1)
[2020-11-25 14:41] LABS: GLUCOSE 162 MG/DL (70-105); TOTAL PROTEIN 7.5 GM/DL (6.4-8.2)
[2020-11-25 14:42] LABS: CARBON DIOXIDE 29 MMOL/L (21-32)
[2020-11-25 14:45] LABS: ALKALINE PHOSPHATASE 216 U/L (40-136); CREATININE SERUM 0.81 MG/DL (0.60-1.30); GFR ESTIMATED > 60
[2020-11-25 14:46] LABS: BUN/CREATININE RATIO 17
[2020-11-25 14:48] LABS: ALANINE AMINOTRANSFERASE 117 U/L (0-55); LIPASE 24 U/L (8-78)
[2020-11-25] MEDS ORDERED: MUPIROCIN 2% OINT 22 GM (BACTROBAN) TUBE ONE (14:54)
--- NOTE | 2020-11-25 15:10 | Diagnostic Imaging Report ---
PROCEDURE: CT abdomen and pelvis without contrast. TECHNIQUE: Multiple contiguous axial images were obtained through the abdomen and pelvis without the use of intravenous contrast. Auto Exposure Controls were utilized during the CT exam to meet ALARA standards for radiation dose reduction. INDICATION: Abdominal pain with hypertension. FINDINGS: There has been development of an approximately 7 cm in diameter low-density focus within the posterior right hepatic lobe. Note is also made of gallbladder distention with redemonstration of cholecystolithiasis. Small punctate area of high density is seen near the ampulla of Vater which could represent choledocholithiasis. There is increase in pgac-vu-spglxjsu hiatal hernia. No discrete pancreatic, adrenal gland, or splenic lesion is identified. Unenhanced kidneys are unremarkable in appearance. There is artifact from metallic hip prostheses which limits evaluation of the pelvis. No definite pelvic mass or free fluid is identified. Unopacified bladder reveals no focal abnormality. No definite pathologic adenopathy is detected. No appendiceal inflammation is seen. IMPRESSION: 1. Development of 7 cm right lobe hepatic mass. There does appear to be background hepatic cirrhosis and the possibility of developing hepatocellular carcinoma is not excluded. Other consideration would include metastatic disease to the liver. Clinical correlation is recommended. Consideration could be given to PET imaging or biopsy. 2. There is cholecystolithiasis and probable choledocholithiasis with punctate calcification at the level of the ampulla of Vater. Correlation with laboratory values and possible nuclear medicine hepatobiliary scan would be of use. Dictated by: Dictated on workstation # [id number]
--- NOTE | 2020-11-25 15:17 | Diagnostic Imaging Report ---
INDICATION: coughing hx aspiration COMPARISON: 11/22/2020. FINDINGS: Single frontal view of the chest demonstrates normal heart size and pulmonary vascularity. The lungs are well aerated and clear. No large pleural effusion or pneumothorax is seen. The visualized osseous structures show no acute abnormalities. IMPRESSION: 1. No acute cardiopulmonary process. Dictated by: Dictated on workstation # [id number]
[2020-11-25 15:53] LABS: BILIRUBIN,URINE NEGATIVE (NEGATIVE); CLARITY,URINE CLEAR; COLOR,URINE YELLOW; GLUCOSE, URINE (UA) NEGATIVE (NEGATIVE); KETONES,URINE NEGATIVE (NEGATIVE); LEUKOCYTE ESTERASE ,URINE TRACE (NEGATIVE); NITRITE,URINE NEGATIVE (NEGATIVE); PROTEIN,URINE NEGATIVE (NEGATIVE)
[2020-11-25 16:01] LABS: BACTERIA,URINE LARGE /HPF; RBC,URINE 0-2 /HPF; SQUAMOUS EPITHELIAL CELL,UR 0-2 /HPF
[2020-11-25] MEDS ORDERED: ONDA8TAB13 PO ×2 (16:19→16:34)
[2020-11-25] MEDS ORDERED: PROM12.566 RC ×2 (16:22→16:34)
[2020-11-25 17:13] VITALS: BP 129/67
[2020-11-26] MEDS ORDERED: PROM25TA14 PO (13:00)
[2020-11-26] MEDS ORDERED: ONDA8TAB13 PO (13:00)
== END 2020-11-25 17:13 | disposition home or self-care (01) ==
LOC: EDUNIT# 14:11 → ER 14:13
DX: R16.0 Hepatomegaly, not elsewhere classified (principal); K80.20 Calculus of gallbladder without cholecystitis without obstruction; F20.9 Schizophrenia, unspecified; G80.9 Cerebral palsy, unspecified; G40.909 Epilepsy, unspecified, not intractable, without status epilepticus; Z79.899 Other long term (current) drug therapy
CPT/HCPCS: 36415; 51701; 71045; 74176; 80053; 81000; 83690; 84145; 85025; 87077; 87088; 96374

== ENCOUNTER → 2020-11-29 | Outpatient (CLI) | payer MEDICARE, MEDICAID ==
[~2020-11-29] MED LIST changes: +ONDA8TAB13 PO; +PROM12.566 RC; +PROM25TA14 PO
--- NOTE | 2020-11-29 09:58 | Diagnostic Imaging Report ---
PROCEDURE: MR imaging cholangiography-pancreatography. TECHNIQUE: Multiplanar imaging of the abdomen was performed on a 1.5 Carolyne magnet without contrast. 3D reconstructions were made for the MRCP INDICATION: Liver lesion Exam is correlated with a noncontrasted abdominal CT dated 11/25/2020. FINDINGS: There are multiple stones within the gallbladder lumen. No appreciable gallbladder wall thickening or pericholecystic edema. Gallbladder measures a length of 8.4 cm with maximal transverse diameter of 3 cm. There is no intra or extrahepatic bile duct dilatation and no filling defects within the common hepatic or common bile duct. The pancreas appeared nonacute. The spleen within upper limits of normal for size appeared nonfocal. Morphology of the liver is such that a cirrhosis could not be excluded. We acknowledge sensitivity in limitations owing to the absence of contrast as well as significant respiratory motion artifact. Patient was unable to follow breathing instructions. Mass in the right hepatic lobe posteriorly appears fairly well-defined and has a maximal diameter of 7.3 cm its a mildly T2 hyperintense and heterogeneous. Unchanged in size and morphology from the recent comparison CT however is not present on a remote CT performed 04/2015. IMPRESSION: Cholelithiasis without appreciable choledocholithiasis or biliary ductal dilatation. A probable hepatic cirrhosis with new mass right hepatic lobe, neoplasm could not be excluded. Consider CT-guided biopsy as warranted. Not mentioned above bilateral pleural effusions greater left than right new from the recent CT. Upper limits spleen size stable but no becca abdominal ascites or appreciable adenopathy. Dictated by: Dictated on workstation # [id number]
== END ==
LOC: RAD 07:15
PROVIDERS: ATTEND Surgery
DX: K80.20 Calculus of gallbladder without cholecystitis without obstruction (principal); R16.0 Hepatomegaly, not elsewhere classified
CPT/HCPCS: 74181

== ENCOUNTER → 2020-12-03 | Outpatient (CLI) | payer MEDICARE, MEDICAID ==
--- NOTE | 2020-12-03 16:16 | Diagnostic Imaging Report ---
INDICATION: Liver mass. The study is performed for initial staging. Serum blood glucose level at time of injection is 111 mg/dL. The patient was administered 17.0 mCi F18-FDG intravenously in the right wrist and PET imaging was performed from the top of the skull to mid thighs. Noncontrast CT was also performed for attenuation correction and anatomic correlation. No prior PET studies are available for comparison. Comparison is made with CT of the abdomen and pelvis from 11/25/2020 and MRCP study from 11/29/2020. There is symmetric activity throughout the brain. Soft tissues of the neck are unremarkable. No mediastinal or hilar hypermetabolism is identified. There are small bilateral pleural effusions. No pulmonary parenchymal hypermetabolism is identified. There is physiologic activity throughout the gastrointestinal and genitourinary tracts of the abdomen and pelvis. The mass located in the right lobe of the liver does not demonstrate FDG avidity. There is a lobulated contour to the liver suggestive of cirrhosis. The patient has a large hiatal hernia. There is no ascites. IMPRESSION: 1. Known right lobe liver mass does not demonstrate FDG avidity. No suspicious areas of hypermetabolism are identified. 2. Bilateral pleural effusions. 3. Findings suggestive of cirrhosis. Dictated by: Dictated on workstation # [id number]
== END ==
LOC: RAD 08:15
PROVIDERS: ATTEND Family Medicine
DX: R16.0 Hepatomegaly, not elsewhere classified (principal); J90 Pleural effusion, not elsewhere classified
CPT/HCPCS: 78815; A9552

== ENCOUNTER 2021-01-08 10:34 | Outpatient (CLI) | payer MEDICARE, MEDICAID ==
[2021-01-08] VITALS (12 sets, daily range): BP systolic 107–150; BP diastolic 59–85
[~2021-01-08] VITALS: Ht 162.6 cm; Wt 95.5 kg
[2021-01-08] MEDS ORDERED: NS IV 1000 ML 1,000 ML IV STA (10:51)
[2021-01-08] MEDS ORDERED: LACTATED RINGERS 1,000 ML IV ONE (10:56)
[2021-01-08] MEDS ORDERED: fentaNYL INJ 100 MCG/2 ML AMP IVP ONE (11:00)
[2021-01-08] MEDS ORDERED: MIDAZOLAM 2 MG/2 ML (VERSED) VIAL IVP ONE (11:00)
[2021-01-08] MEDS ORDERED: LIDOCAINE 1% INJ 20 ML 20 ML VIAL INJ ONE (11:00)
[2021-01-08 11:37] LABS: BASOPHILS % (AUTO) 0 % (0-10); EOSINOPHILS % (AUTO) 0 % (0-10); HEMATOCRIT 40 % (35-52); HEMOGLOBIN 12.4 g/dL (11.5-16.0); LYMPHOCYTES # (AUTO) 0.9 10^3/uL (1.0-4.0); LYMPHOCYTES % (AUTO) 16 % (12-44); MEAN CORPUSCULAR HEMOGLOBIN 31 pg (25-34); MEAN CORPUSCULAR HGB CONC 31 g/dL (32-36); MEAN CORPUSCULAR VOLUME 98 fL (80-99); MEAN PLATELET VOLUME 11.4 fL (9.0-12.2); MONOCYTES # (AUTO) 0.5 10^3/uL (0.0-1.0); MONOCYTES % (AUTO) 9 % (0-12); NEUTROPHILS # (AUTO) 4.2 10^3/uL (1.8-7.8); NEUTROPHILS % (AUTO) 75 % (42-75); PLATELET COUNT 185 10^3/uL (130-400); WHITE BLOOD COUNT 5.6 10^3/uL (4.3-11.0)
[2021-01-08 11:54] LABS: INR 1.1 (0.8-1.4); PROTHROMBIN TIME PATIENT 14.5 SEC (12.2-14.7)
[2021-01-08] MEDS ORDERED: CATHETER FLUSH 10 ML SYR IV PRN (12:00)
--- NOTE | 2021-01-08 14:19 | Diagnostic Imaging Report ---
INDICATION: Liver mass. Patient presents for CT-guided biopsy. Patient brought to the CT suite placed on table in the left side down decubitus position. Axial imaging through the abdomen was performed to evaluate appropriate entry site. The procedure was performed utilizing conscious sedation with radiology nursing and constant patient monitoring. Patient was given a total of 50 mcg of fentanyl intravenously and 2 mg of Versed intravenously. Total procedure time was 13 minutes. Lateral right upper quadrant was prepped and draped usual sterile fashion. Small amount of 1% lidocaine was utilized for local anesthesia. A 18-gauge coaxial Temno needle was advanced placed with its tip within the solid mass in the inferior right lobe of liver. 3 core biopsies were obtained. A blood patch was injected during needle removal. Followup imaging shows no complicating features. Patient tolerated the procedure well and left the department in stable condition. IMPRESSION: Successful CT-guided right lobe liver mass biopsy utilizing conscious sedation. Pathology results are currently pending. TECHNIQUE: All CT scans use one or more of the following dose optimizing techniques: automated exposure control, MA and/or KvP adjustment based on patient size and exam type or iterative reconstruction. Dictated by: Dictated on workstation # [id number]
--- NOTE | 2021-01-08 15:13 | Pre-Op Note & Conscious Sedat ---
Pre-Operative Progress Note H&P Reviewed The H&P was reviewed, patient examined and no changes noted. Date H&P Reviewed: Jan 08, 2021 Time H&P Reviewed: 11:00 Pre-Op Diagnosis: liver mass Conscious Sedation Pre-Proced Time 11:00 ASA Score 2 For ASA 3 and 4: Consider anesthesia and medical clearance. Also, for patients with a history of failed moderate sedation consider anesthesia. Airway Lungs Heart ASA score ASA 1: a normal healthy patient ASA 2: a patient with a mild systemic disease (mid diabetes, controlled hypertension, obesity ASA 3: a patient with a severe systemic disease that limits activity (angina, COPD, prior Myocardial infarction) ASA 4: a patient with an incapacitating disease that is a constant threat to life (CHF, renal failure) ASA 5: a moribund patient not expected to survive 24 hrs. (ruptured aneurysm) ASA 6: a declared brain- patient whose organs are being harvested. For emergent operations, add the letter E after the classification Mallampati Classification Grade 2 Sedation Plan Analgesia, Amnesia, Plan communicated to team members, Discussed options with patient/fam, Discussed risks with patient/fam The patient is an appropriate candidate to undergo the planned procedure, sedation, and anesthesia. The patient immediately re-assessed prior to indication. JOSUE NORTON MD Jan 08, 2021 15:12
== END 2021-01-08 15:30 | disposition home or self-care (01) ==
LOC: 4THo 10:34 → 4TH 10:36 → 4THo 15:30
PROVIDERS: ATTEND Surgery
DX: R16.0 Hepatomegaly, not elsewhere classified (principal); R10.11 Right upper quadrant pain
CPT/HCPCS: 36415; 77012; 85025; 85610; 85730; 99156

== ENCOUNTER 2021-01-23 08:33 | Outpatient (RCR) | payer MEDICARE, MEDICAID ==
[2021-01-23 08:59] LABS: BASOPHILS % (AUTO) 0 % (0-10); EOSINOPHILS % (AUTO) 0 % (0-10); MEAN CORPUSCULAR HEMOGLOBIN 30 pg (25-34)
[2021-01-23 09:01] LABS: HEMATOCRIT 36 % (35-52); HEMOGLOBIN 11.4 g/dL (11.5-16.0); LYMPHOCYTES # (AUTO) 1.2 10^3/uL (1.0-4.0); LYMPHOCYTES % (AUTO) 23 % (12-44); MEAN CORPUSCULAR HGB CONC 31 g/dL (32-36); MEAN CORPUSCULAR VOLUME 96 fL (80-99); MEAN PLATELET VOLUME 12.3 fL (9.0-12.2); MONOCYTES # (AUTO) 0.5 10^3/uL (0.0-1.0); MONOCYTES % (AUTO) 10 % (0-12); NEUTROPHILS # (AUTO) 3.5 10^3/uL (1.8-7.8); NEUTROPHILS % (AUTO) 67 % (42-75); PLATELET COUNT 133 10^3/uL (130-400); WHITE BLOOD COUNT 5.2 10^3/uL (4.3-11.0)
[2021-01-23 09:11] LABS: INR 1.1 (0.8-1.4); PROTHROMBIN TIME PATIENT 14.9 SEC (12.2-14.7)
[2021-01-23 09:14] LABS: ALBUMIN 2.8 GM/DL (3.2-4.5); BILIRUBIN,TOTAL 0.7 MG/DL (0.1-1.0); CALCIUM 8.7 MG/DL (8.5-10.1); CREATININE SERUM 0.77 MG/DL (0.60-1.30); POTASSIUM 3.8 MMOL/L (3.6-5.0); TOTAL PROTEIN 7.1 GM/DL (6.4-8.2)
[2021-01-23 21:37] LABS: HEPATITIS C ANTIBODY C Non-Reactive (Non-Reactive)
== END 2021-04-23 | disposition home or self-care (01) ==
LOC: ONC 08:33
PROVIDERS: ATTEND Internal Medicine Hematology & Oncology
DX: C22.0 Liver cell carcinoma (principal); K74.60 Unspecified cirrhosis of liver
CPT/HCPCS: 80053; 80074; 82105; 82728; 83540; 83550; 85025; 85610; G0463; 99214